=== PATIENT | female | born 1945 | race Caucasian/White ===

== ENCOUNTER 2025-02-06 07:58 | Outpatient (CLI) | payer OTHER | END 2025-02-06 07:59 | disposition home or self-care (01) | LOC: CT 07:58 | PROVIDERS: ATTEND Family Medicine | DX: S09.90XD Unspecified injury of head, subsequent encounter (principal); M47.812 Spondylosis without myelopathy or radiculopathy, cervical region | CPT/HCPCS: 70450; 72125 ==